=== PATIENT | female | born 1990 | race Hispanic/Latino ===

== ENCOUNTER 2023-07-17 01:57 | Emergency (ER) | payer OTHER, SELFPAY ==
--- NOTE | 2023-07-17 04:42 | ED.GENMED ---
History of Present Illness
<SABINO Aviles - Last Filed: 07/17/23 06:58>
General
Chief Complaint: Headache
Source: patient
Exam Limitations: none
Time Seen by Provider: 07/17/23 04:41
History of Present Illness
History of Present Illness:
33 year old F presents w/ c/o gradual worsening of headache x14 hours. Her headache began at 1pm yesterday and was located primarily at the back of her head. She had associated R eye blurriness that lasted for 1-2 hours that started at the same
time. She also has associated symptom of mild nausea. She took Tylenol 500mg at 1300 and again at 1400 without any relief. She also reports taking a hot shower that did not provide any relief. She admits to photophobia and states keeping her eyes
shut provides mild relief. She reports her headache is now located at the top of her head and describes the pain to be throbbing and 8/10 on a pain scale. She denies worst headache of her life, neck stiffness, chest pain, and shortness of breath,
vomiting, or diarrhea. She denies any head trauma or recent falls.
Past History
<SABINO Aviles - Last Filed: 07/17/23 06:58>
Past History
ED Past Medical History: Other (prolapsed uterus, HNP/chronic back pain)
ED Past Surgical History: None
Social History
Tobacco: Non-smoker
Alcohol: None
Drug: None
Personal:
Living: with family
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
Review of Systems
<SABINO Aviles - Last Filed: 07/17/23 06:58>
Review of Systems
Allergies reviewed?: Yes
All Other Systems: Not applicable
Constitutional: Reports no symptoms
EENT: Reports other (photophobia )
Respiratory: Reports no symptoms
Cardiac: Reports no symptoms
ABD/GI: Reports nausea
: Reports no symptoms
Musculoskeletal: Reports no symptoms
Skin: Reports no symptoms
Neurological: Reports headache
Endocrine: Reports no symptoms
Hematologic/Lymphatic: Reports no symptoms
Psychiatric: Reports no symptoms
Phy Exam
<Samantha Garcia [facility] - Last Filed: 07/17/23 06:58>
General Physical Exam
General Presentation: mild distress
General Skin: warm and dry
General Habitus: normal
General Mental: alert
General Hydration: appears well hydrated
ENT Exam
ENT Exam: EOMI, pharynx normal, neck supple and normocephalic
Eye Exam
Eye Exam: PERRL, cornea clear and conjunctiva normal
Cardiovascular Exam
Cardiovascular Exam: regular rate/rhythm, no edema, no murmur and normal peripheral pulses
Pulmonary Exam
Pulmonary Exam: lungs clear, no respiratory distress, no rales, no crackles, no rhonchi, no stridor, no wheezing and no cough
Gastrointestinal Exam
Gastrointestinal Exam: normal bowel sounds, non tender, soft, no organomegaly, no pulsatile mass and non distended
Neurological Exam
Neurological Exam: alert, oriented x3, no motor deficits and speech normal
Musculoskeletal Exam
Musculoskeletal Exam: full ROM and no edema
Skin Exam
Skin Exam: normal color, warm/dry, no rash and no petechia
Psychiatric Exam
Psychiatric Exam: normal mood/affect
Course
<Samantha Garcia [facility] - Last Filed: 07/17/23 06:58>
Orders/Labs/Results
Orders:
Orders
07/17/23 02:25
Basic Metabolic Panel Routine
Complete Blood Count/With Diff Routine
HCG, Serum Qualitative Screen Routine
Abnormal Lab Results
07/17/23
02:25
RBC 4.16 L 10^6/uL
(4.20-5.40)
Hgb 11.9 L g/dL
(12.0-16.0)
Hct 36.7 L %
(37.0-47.0)
MCHC 32.4 L g/dL
(33.0-37.0)
MPV 11.2 H fL
(7.4-10.4)
Absolute Neuts (auto) 7.2 H 10^3/uL
(1.4-6.5)
Absolute Monos (auto) 0.8 H 10^3/uL
(0.1-0.6)
Glucose 100 H mg/dl
(70-99)
07/17/23 02:25
07/17/23 02:25
Vital Signs
Initial and Last Documented VS:
Initial Vital Signs
Pulse Resp BP Pulse Ox
72 16 122/71 99
07/17/23 06:09 07/17/23 06:09 07/17/23 06:09 07/17/23 06:09
Last Documented Vital Signs
Pulse Resp BP Pulse Ox
72 16 122/71 99
07/17/23 06:09 07/17/23 06:09 07/17/23 06:09 07/17/23 06:09
<Asa Lainez, DO - Last Filed: 07/17/23 05:46>
Orders/Labs/Results
Orders:
Orders
07/17/23 02:25
Basic Metabolic Panel Routine
Complete Blood Count/With Diff Routine
HCG, Serum Qualitative Screen Routine
Abnormal Lab Results
07/17/23
02:25
RBC 4.16 L 10^6/uL
(4.20-5.40)
Hgb 11.9 L g/dL
(12.0-16.0)
Hct 36.7 L %
(37.0-47.0)
MCHC 32.4 L g/dL
(33.0-37.0)
MPV 11.2 H fL
(7.4-10.4)
Absolute Neuts (auto) 7.2 H 10^3/uL
(1.4-6.5)
Absolute Monos (auto) 0.8 H 10^3/uL
(0.1-0.6)
Glucose 100 H mg/dl
(70-99)
07/17/23 02:25
07/17/23 02:25
Vital Signs
Initial and Last Documented VS:
Initial Vital Signs
Pulse Resp BP Pulse Ox
72 16 122/71 99
07/17/23 06:09 07/17/23 06:09 07/17/23 06:09 07/17/23 06:09
Last Documented Vital Signs
Pulse Resp BP Pulse Ox
72 16 122/71 99
07/17/23 06:09 07/17/23 06:09 07/17/23 06:09 07/17/23 06:09
<SABINO Aviles - Last Filed: 07/17/23 06:58>
MDM/Problems Addressed
Differential Diagnosis Includes:
Migraine with aura was considered due to patient gradual worsening onset. She reports associated R eye blurriness with photophobia and nausea, consistent with migraine. Tension headache was considered d/t to headache with photophobia. However, she
describes her pain to be more centered and throbbing sensation, which is not consistent with tension headache.Stroke was considered d/t to vision changes. However, her symptom has now resolved. She denied any facial drooping, difficulty speaking, or
extremity paralysis. Subarachnoid hemorrhage was ruled out due to gradual worsening onset of headache. Patient also denied worse headache of her life. �
<Asa Lainez DO - Last Filed: 07/17/23 05:46>
*Critical Care Note
Total Time (30-74mins, 75-104mins- exclusive of procedures): Not Applicable
ED Attending Note
<SABINO Aviles - Last Filed: 07/17/23 06:58>
-
Portions of this chart may have been created with voice recognition software.� Occasional wrong word or��sound alike� substitutions may have occurred due to the inherent limitations of voice recognition software.
<Asa Lainez DO - Last Filed: 07/17/23 05:46>
ED Attending Note
Patient seen and examined by attending physician: Yes
I performed the substantive portion of visit, reviewed & personally made and approve the management plan that is documented in note by myself or NAHOMY.: Yes
ED Attending Note:
Pleasant 33-year-old female presents with headache she states that this headaches been present for the last 14 hours. She states it is in the back of her head and she did have some right eye blurriness. She does report some photophobia. She gets
some relief with keeping her eyes shut. Denies any neck pain or any other meningeal signs. Patient was seen in conjunction with the PA student. I have reviewed and agree with the history and treatment plan presented. On my independent physical
exam, patient is awake, alert, and oriented x3 pupils equal round reactive light accommodation. Heart is regular rate and rhythm. Lungs are clear to auscultation bilaterally without wheezes rales or rhonchi present.
07/17/2023 0543 AM Patient is feeling much better. Plan is to discharge to home.
Discharge Plan
Departure
Patient Disposition: Home (Routine Discharge)
Date of Disposition: 07/17/23
Time of Disposition: 05:43
Patient with high blood pressure during this ER visit?: No
Condition: Good
Discharge Problem:
Migraine headache with aura
Instructions: Migraines (DC), Headache, Adult (DC)
Prescriptions:
No Action
ibuprofen 600 MG tablet
600 mg PO Q6HPRN PRN (Reason: pain) Qty: 20 0RF
Cyclobenzaprine HCl
5 mg PO DAILY
ibuprofen 600 mg tablet
600 mg PO QID PRN (Reason: fever, pain) Qty: 30 0RF
Referrals:
Vanessa Ellsworth MD [Family Provider] -
Sharmin Adams, [Active] -
Activity Restrictions/Additional Instructions:
It was a pleasure meeting you and taking part in your care. We hope for your continued healing and wellness.
Please read discharge instructions in their entirety. However, they are for general education and may not describe your exact diagnosis at discharge. Information on your ER visit and medical conditions were discussed with you along with appropriate
follow up information...
If indicated, please take your medications as instructed and indicated on discharge paperwork.
Please schedule a follow up appointment as directed. Call to schedule an appointment
Please return to the emergency department with ANY change in, persisting, or worsening of symptoms. If any of your symptoms do not improve, or persist, or become more severe within 6-12 hours, please return to the emergency department for further
care.
Please return to the emergency department if you develop a headache, neck pain/stiffness, fever greater than 100.4F, chest pain, shortness of breath, persistent nausea, vomiting, slurred speech, difficulty walking, numbness/tingling, weakness, signs
of infection or any other symptoms that are worrisome to you.
If you have any questions or concerns please do not hesitate to call the Hospital at or E-mail me directly at [email or web address]
Interventions
Interventions:
ED- Fall Risk Assessment Last Done: 07/17/23 02:20
*Nursing Disposition Last Done: 07/17/23 06:10
ED- Neurological Assessment Last Done: 07/17/23 02:20
Discharge Date and Time
Discharge Date/Time: 07/17/23 06:50
Print Language: PERSIAN
--- NOTE | 2023-07-17 04:45 | DOWNTIME ---
There was a [email or web address] Downtime on 07/17/2023 from 0100 to 07/17/2023 at 0439. Downtime documentation of patient's care, including medication administrations, has been reconciled in the electronic record per guidelines. Refer to the
patient's paper chart under the miscellaneous tab to see printed paper medication records and downtime forms.
[2023-07-17 04:51] LABS: % Basophils 0.4 % (0-2); % Eosinophils 1.2 % (0-6); % Immature Granulocytes 0.2 % (0-0.5); % Lymphocytes 21.5 % (20.5-51.1); % Monocytes 7.7 % (1.7-9.3); Absolute Eosinophils 0.1 10^3/uL (0-0.7); Absolute Lymphocytes 2.2 10^3/uL (1.2-3.4); Absolute Monocytes 0.8 10^3/uL (0.1-0.6); Absolute Neutrophils 7.2 10^3/uL (1.4-6.5); Blood Urea Nitrogen 9 mg/dl (7-17); Calcium 9.3 mg/dl (8.4-10.2); Carbon Dioxide 24 mmol/L (22-30); Chloride 105 mmol/L (98-107); Glucose 100 mg/dl (70-99); Hematocrit 36.7 % (37.0-47.0); Hemoglobin 11.9 g/dL (12.0-16.0); Mean Corp Hgb Conc. 32.4 g/dL (33.0-37.0); Mean Corpuscular Hgb 28.6 pg (27.0-31.0); Mean Corpuscular Volume 88.2 fL (81.0-99.0); Mean Platelet Volume 11.2 fL (7.4-10.4); Nucleated Red Blood Cells % 0 %; Platelet Count 275 10^3/uL (130-400); Potassium 4.4 mmol/L (3.5-5.1); Red Blood Cell Count 4.16 10^6/uL (4.20-5.40); Sodium 136 mmol/L (135-145); White Blood Cell Count 10.4 10^3/uL (4.8-10.8); eGFR > 60.00
[2023-07-17 04:52] LABS: HCG, Serum Qualitative Screen Negative
[2023-07-17 06:09] VITALS: BP 122/71
== END 2023-07-17 06:50 | disposition home or self-care (01) ==
LOC: EMR 01:57
PROVIDERS: EMERGENCY PHYSICIAN Student in an Organized Health Care Education/Training Program; FAMILY PHYSICIAN Family Medicine
DX: G43.109 Migraine with aura, not intractable, without status migrainosus (principal)
CPT/HCPCS: 99283; 80048; 84703; 85025

== ENCOUNTER 2023-09-10 10:45 | Emergency (ER) | payer OTHER, SELFPAY ==
[2023-09-10 10:49] VITALS: BP 133/77; BMI 33.8
[2023-09-10 10:56] VITALS: BP 133/77
[2023-09-10 11:00] VITALS: BP 137/77
[2023-09-10 11:15] LABS: % Basophils 0.3 % (0-2); % Eosinophils 0.4 % (0-6); % Immature Granulocytes 0.4 % (0-0.5); % Lymphocytes 16.5 % (20.5-51.1); % Monocytes 6.1 % (1.7-9.3); % Neutrophils 76.3 % (42.2-75.2); Absolute Immature Granulocytes 0.1 10^3/uL (0-0.05); Absolute Lymphocytes 1.9 10^3/uL (1.2-3.4); Absolute Monocytes 0.7 10^3/uL (0.1-0.6); Absolute Neutrophils 8.7 10^3/uL (1.4-6.5); Hematocrit 35.5 % (37.0-47.0); Mean Corp Hgb Conc. 33.8 g/dL (33.0-37.0); Mean Corpuscular Hgb 28.5 pg (27.0-31.0); Mean Corpuscular Volume 84.3 fL (81.0-99.0); Nucleated Red Blood Cells % 0 %; Platelet Count 243 10^3/uL (130-400); Red Blood Cell Count 4.21 10^6/uL (4.20-5.40); Red Cell Dist. Width 13.4 % (11.5-14.5); White Blood Cell Count 11.4 10^3/uL (4.8-10.8)
--- NOTE | 2023-09-10 11:21 | ED.GENMED ---
History of Present Illness
General
Chief Complaint: Abdominal Pain
Source: patient
Time Seen by Provider: 09/10/23 11:12
Travel History
Have you had any contact with someone who has COVID-19?: No
Do you have any symptoms of coronavirus? Fever > 100 degrees, chills, cough, shortness of breath, sore throat, loss of taste or smell, muscle aches, or headache?: No
History of Present Illness
History of Present Illness:
33-year-old female with no significant past medical history presenting to the emergency department for evaluation of left lower quadrant abdominal pain that began yesterday, acutely worse this morning around 3 AM and unrelieved with Tylenol as well
as herbal tea. Patient states due to the persistent nature of the pain she decided to come to the ER today. She denies any other associated symptoms other than she started with her menstrual period about 2 weeks early. She notes she is sexually
active but has minimal concern for she denies any fevers, chills, rigors, nausea, bowel changes, urinary symptoms, back or flank pain. She states she has had this pain in the past however today is much more tense than usual.
Past History
Past History
ED Past Medical History: Psychiatric and Other (prolapsed uterus, HNP/chronic back pain)
ED Past Surgical History: None
Social History
Tobacco: Non-smoker
Alcohol: Occasional
Drug: None
Personal:
Living: with family
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
Review of Systems
Review of Systems
All Other Systems: ROS reviewed and negative except as documented in HPI and ROS
Phy Exam
Physical Exam
Physical Exam:
GENERAL: Alert , Appears very uncomfortable, moaning
EYE: clear conjunctiva b/l
HEAD: NCAT
ENT: o/p clr, mmm.
CARDIAC: Regular rate and rhythm .
LUNGS: Clear breath sounds bilaterally, no acute respiratory distress, no wheezes/rales/rhonchi
ABDOMEN: Soft, left mid to lower abdominal tenderness/pain, no r/g, no cvat
NEUROLOGICAL: Alert and oriented
SKIN: Warm and dry, skin intact.
MUSCULOSKELETAL: well perfused.
PSYCH: Normal and appropriate interaction.
Scores
Heart Failure Risk
Heart Failure Risk Score: Not Applicable
Heart Score for Chest Pain Patients
STEMI patient?: Not applicable
Withdrawal Assessment of Alcohol
Withdrawal Assessment Completed?: Not applicable
Course
Orders/Labs/Results
Orders:
Orders
09/10/23 10:59
Test Result ONCE
09/10/23 11:00
Complete Blood Count/With Diff Urgent
Comprehensive Metabolic Panel Urgent
HCG, Serum Qualitative Screen Urgent
Lipase Urgent
09/10/23 11:20
0.9% Sodium Chloride 1000 ml [Nss] 1,000 ml IV BOLUS
Ketorolac [Toradol] 30 mg IV NOW STA
US Pelvis W Transvag Combined Urgent
Comment:
Reason For Exam: left lower abd pain, early menstrual
09/10/23 12:19
HYDROmorphone [Dilaudid] 0.5 mg .ROUTE .STK-MED ONE
09/10/23 12:20
HYDROmorphone [Dilaudid] 0.5 mg IV NOW STA
09/10/23 12:30
Urinalysis Reflex To Culture Urgent
Date Specimen was Collected: 09/10/23
Time Specimen was Collected: 12:28
Urine Microscopic Reflex Cult Urgent
09/10/23 13:10
CT Abd/pelvis W Iv Cont Urgent
Comment:
Reason For Exam: left sided lower abd pain
09/10/23 13:34
HYDROmorphone [Dilaudid] 0.5 mg IV NOW STA
Abnormal Lab Results
09/10/23 09/10/23
11:00 12:30
WBC 11.4 H 10^3/uL
(4.8-10.8)
Hct 35.5 L %
(37.0-47.0)
MPV 11.0 H fL
(7.4-10.4)
Abs Immat Gran (auto) 0.1 H 10^3/uL
(0-0.05)
Absolute Neuts (auto) 8.7 H 10^3/uL
(1.4-6.5)
Absolute Monos (auto) 0.7 H 10^3/uL
(0.1-0.6)
Neutrophils % 76.3 H %
(42.2-75.2)
Lymphocytes % 16.5 L %
(20.5-51.1)
Creatinine 0.5 L mg/dL
(0.6-1.0)
Ur Occult Blood Reflex 4+ A
(Negative)
Leukocyte Esterase Rfl Trace A
(Negative)
Urine RBC 30-40 A /HPF
(0-2)
Urine Bacteria (Reflex) Few A
(Negative)
09/10/23 11:00
09/10/23 11:00
Vital Signs
Initial and Last Documented VS:
Initial Vital Signs
Temp Pulse Resp BP Pulse Ox
98.4 F 80 17 133/77 97
09/10/23 10:49 09/10/23 10:49 09/10/23 10:49 09/10/23 10:49 09/10/23 10:49
Last Documented Vital Signs
Temp Pulse Resp BP Pulse Ox
98.4 F 65 17 140/76 97
09/10/23 10:49 09/10/23 13:45 09/10/23 10:49 09/10/23 13:42 09/10/23 13:45
MDM/Problems Addressed
Differential Diagnosis Includes:
/ectopic , ovarian cyst, ovarian torsion, diverticulitis, colitis, endometriosis
MDM/Problems Addressed:
33-year-old female presenting to the emergency department for evaluation of left lower quadrant abdominal pain x 1 day, acutely worse today prompting visit to the ER. She did take Tylenol last night but had minimal to no relief. Denies any fevers
or infectious symptoms. Currently appears quite uncomfortable. Will order Toradol for pain. Labs initiated from triage. I added on a ultrasound. Reassessment following.
*Radiology
Radiology exam reviewed: radiology read reviewed
*Pulse Oximetry
Patient hypoxic: no
*Critical Care Note
Total Time (30-74mins, 75-104mins- exclusive of procedures): Not Applicable
Data Reviewed
Review of Other/Old Records Reveals: Labs and Records
Comment
Comment:
12 PM: Patient still with considerable pain despite Toradol. Half milligram Dilaudid ordered. Due to the persistent nature of pain we contacted the ultrasound department to try and get patient to her study NELY as torsion is high on differential
1:20 PM: Patient's left ovary is slightly hypervascular. 4-1/2 cm fibroid noted. Went to reassess patient and discussed the ultrasound results and she still noting pain despite Dilaudid. Additional half milligram of Dilaudid ordered. CT of the
abdomen pelvis ordered. Reassessment following.
Patient Management
Escalation/DeEscalation of care consider admission/obs:
Patient CT and ultrasound without any acute findings. There is a 4-1/2 cm uterine fibroid which could certainly be a cause of breakthrough bleeding and dysmenorrhea. Patient noting improved albeit still mildly continued pain. Given lack of
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 Patient expressed understanding of return precautions. Stable for
discharge
ED Attending Note
-
Portions of this chart may have been created with voice recognition software.� Occasional wrong word or��sound alike� substitutions may have occurred due to the inherent limitations of voice recognition software.
Discharge Plan
Departure
Patient Disposition: Home (Routine Discharge)
Date of Disposition: 09/10/23
Time of Disposition: 15:10
Patient with high blood pressure during this ER visit?: Yes
Discharge Problem:
Abdominal pain, Fibroid, uterine, Dysmenorrhea
Instructions: Abdominal Pain
Prescriptions:
New
oxycodone-acetaminophen [Percocet] 5-325 mg tablet
1 tab PO Q6HPRN PRN (Reason: pain) Qty: 5 0RF
No Action
ibuprofen 600 MG tablet
600 mg PO Q6HPRN PRN (Reason: pain) Qty: 20 0RF
Cyclobenzaprine HCl
5 mg PO DAILY
ibuprofen 600 mg tablet
600 mg PO QID PRN (Reason: fever, pain) Qty: 30 0RF
Referrals:
Vanessa Ellsworth MD [Family Provider] -
Interventions
Interventions:
*Risk Screen - Suicide Last Done: 09/10/23 10:49
*General Assessment Last Done: 09/10/23 10:49
*Neglect/Abuse Screening Last Done: 09/10/23 10:49
ED- Fall Risk Assessment Last Done: 09/10/23 11:15
*ED COVID-19 Vaccine History Last Done: 09/10/23 10:49
AV-Szpjic-Xnqfbakybb Assessment Last Done: 09/10/23 11:15
Discharge Date and Time
Print Language: EGYPTIAN
[2023-09-10] MEDS: TORADOL 30 MG IV (11:26)
[2023-09-10] MEDS: NSS 1000 IV (11:26)
[2023-09-10 11:29] LABS: HCG, Serum Qualitative Screen Negative
[2023-09-10 11:34] LABS: ALT (SGPT) 12 U/L (0-35); AST (SGOT) 20 U/L (14-36); Alkaline Phosphatase 85 U/L (38-126); Blood Urea Nitrogen 7 mg/dl (7-17); Carbon Dioxide 24 mmol/L (22-30); Chloride 106 mmol/L (98-107); Estimated Creatinine Clearance > 125 ml/min; Glucose 98 mg/dl (70-99); Lipase 38 U/L (23-300); Sodium 137 mmol/L (135-145); Total Bilirubin 1.1 mg/dl (0.2-1.3); Total Protein 6.9 g/dl (6.3-8.2); eGFR > 60.00
[2023-09-10 12:00] VITALS: BP 138/75
[2023-09-10] MEDS: DILAUDID 0.5 MG IV ×2 (12:21→13:40)
[2023-09-10 12:41] LABS: Urine Albumin Negative (Neg - Trace); Urine Bilirubin Negative (Negative); Urine Character Clear (Clear); Urine Color Straw; Urine Glucose Negative (Negative); Urine Ketone Negative (Negative); Urine Leukocyte Trace (Negative); Urine Nitrite Negative (Negative); Urine Occult Blood 4+ (Negative); Urine Specific Gravity 1.005 (<1.030); Urine Urobilinogen Negative (Neg - 1+)
[2023-09-10 13:10] LABS: Urine Bacteria Few (Negative); Urine Squamous Cell 21-25 /LPF (Few)
[2023-09-10 13:11] LABS: Urine Red Blood Cell 30-40 /HPF (0-2); Urine White Cell 0-2 /HPF (0-5)
[2023-09-10 13:42] VITALS: BP 140/76
== END 2023-09-10 15:30 | disposition home or self-care (01) ==
LOC: EMR 10:45
PROVIDERS: Physician Assistant Medical; EMERGENCY PHYSICIAN Emergency Medicine; FAMILY PHYSICIAN Family Medicine
DX: R10.32 Left lower quadrant pain (principal); D25.9 Leiomyoma of uterus, unspecified; N94.6 Dysmenorrhea, unspecified; R03.0 Elevated blood-pressure reading, without diagnosis of hypertension
CPT/HCPCS: 99285; 96374; 96375; 96361; 96376; 74177; 76830; 76856; 80053; 81003; 81015; 83690; 84703; 85025; Q9967

== ENCOUNTER 2023-09-10 15:44 | Emergency (ER) | payer OTHER, SELFPAY ==
--- NOTE | 2023-09-10 15:48 | ED.GENMED ---
History of Present Illness
General
Chief Complaint: Fainting/Passed Out
Source: patient
Time Seen by Provider: 09/10/23 15:48
History of Present Illness
History of Present Illness:
33-year-old female seen in this emergency department earlier today by myself for evaluation of left lower abdominal pain combined with breakthrough vaginal bleeding presenting back into the emergency department after she was waiting outside for her
ride when she had a witnessed vagal episode. Patient stated prior to syncopized and she started to feel lightheaded and dizzy and then proceeded to syncopized. Patient arrived back into the emergency department tearful, somewhat pale in appearance
but in no acute distress. As mentioned at her discharge patient still does have some mild lower abdominal pain but much improved since initial evaluation. No other concerns and patient is denying any chest pain, shortness of breath, palpitations,
diaphoresis or any other symptoms.
Past History
Past History
ED Past Medical History: Psychiatric and Other (prolapsed uterus, HNP/chronic back pain)
ED Past Surgical History: None
Social History
Tobacco: Non-smoker
Alcohol: Occasional
Drug: None
Personal:
Living: with family
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
Review of Systems
Review of Systems
All Other Systems: ROS reviewed and negative except as documented in HPI and ROS
Phy Exam
Physical Exam
Physical Exam:
GENERAL: Alert , tearful, pale
HEAD: NCAT
EYE: conjunctiva clear
NECK: Supple
ENT: o/p clr, mmm.
CARDIAC: Regular rate and rhythm
LUNGS: Clear breath sounds bilaterally, no acute respiratory distress, no wheezes/rales/rhonchi
Abdomen: Mild tenderness left lower abdomen
NEUROLOGICAL: Alert and oriented
SKIN: Warm and dry, superficial abrasion right lateral lower leg with no active bleeding
MUSCULOSKELETAL: well perfused.
PSYCH: Normal and appropriate interaction.
Scores
Heart Failure Risk
Heart Failure Risk Score: Not Applicable
Heart Score for Chest Pain Patients
STEMI patient?: Not applicable
Withdrawal Assessment of Alcohol
Withdrawal Assessment Completed?: Not applicable
Course
Orders/Labs/Results
Orders:
Orders
09/10/23 15:48
0.9% Sodium Chloride 1000 ml [Nss] 1,000 ml IV BOLUS
Vital Signs
Initial and Last Documented VS:
Initial Vital Signs
Temp Pulse Resp BP Pulse Ox
98.4 F 57 16 104/69 100
09/10/23 15:53 09/10/23 15:53 09/10/23 15:53 09/10/23 15:53 09/10/23 15:53
Last Documented Vital Signs
Temp Pulse Resp BP Pulse Ox
98.4 F 61 16 133/82 100
09/10/23 15:53 09/10/23 17:05 09/10/23 15:53 09/10/23 17:05 09/10/23 15:53
MDM/Problems Addressed
Differential Diagnosis Includes:
Vagal episode, medication response, dehydration
MDM/Problems Addressed:
33-year-old female presenting back into the emergency department after being discharged just earlier this afternoon after she had a witnessed syncopal episode while awaiting her ride. Patient had CT of the abdomen and pelvis as well as ultrasound
which did not show any abnormalities outside of a 4-1/2 cm fibroid within the uterus. I do not suspect any emergent pathologies but will treat with fluids and monitor patient back in the emergency department. Reassessment following.
*Pulse Oximetry
Patient hypoxic: no
*Critical Care Note
Total Time (30-74mins, 75-104mins- exclusive of procedures): Not Applicable
Data Reviewed
Review of Other/Old Records Reveals: Labs
Patient Management
Escalation/DeEscalation of care consider admission/obs:
Patient feeling significantly better and feels ready to go home. Aware of return precautions to ED
ED Attending Note
-
Portions of this chart may have been created with voice recognition software.� Occasional wrong word or��sound alike� substitutions may have occurred due to the inherent limitations of voice recognition software.
Discharge Plan
Departure
Patient Disposition: Home (Routine Discharge)
Date of Disposition: 09/10/23
Time of Disposition: 16:35
Patient with high blood pressure during this ER visit?: No
Discharge Problem:
Vasovagal syncope
Instructions: Syncope (Fainting) (DC)
Prescriptions:
No Action
ibuprofen 600 MG tablet
600 mg PO Q6HPRN PRN (Reason: pain) Qty: 20 0RF
Cyclobenzaprine HCl
5 mg PO DAILY
ibuprofen 600 mg tablet
600 mg PO QID PRN (Reason: fever, pain) Qty: 30 0RF
oxycodone-acetaminophen [Percocet] 5-325 mg tablet
1 tab PO Q6HPRN PRN (Reason: pain) Qty: 5 0RF
Interventions
Interventions:
*Risk Screen - Suicide Last Done: 09/10/23 15:53
*General Assessment Last Done: 09/10/23 15:53
*Neglect/Abuse Screening Last Done: 09/10/23 15:53
ED- Fall Risk Assessment Last Done: 09/10/23 15:53
*ED COVID-19 Vaccine History Last Done: 09/10/23 15:53
*Nursing Disposition Last Done: 09/10/23 17:05
ED- Cardiac Assessment Last Done: 09/10/23 15:53
ED- Neurological Assessment Last Done: 09/10/23 15:53
Discharge Date and Time
Discharge Date/Time: 09/10/23 17:05
Print Language: TRINIDADIAN
[2023-09-10] MEDS: NSS 1000 IV (15:52)
[2023-09-10 15:53] VITALS: BP 104/69; BMI 33.8
[2023-09-10 17:05] VITALS: BP 133/82
== END 2023-09-10 17:05 | disposition home or self-care (01) ==
LOC: EMR 15:44
PROVIDERS: EMERGENCY PHYSICIAN Emergency Medicine; FAMILY PHYSICIAN Family Medicine
DX: R55 Syncope and collapse (principal)
CPT/HCPCS: 96360; 99284

== ENCOUNTER 2023-12-15 12:24 | Emergency (ER) | payer OTHER, SELFPAY ==
[2023-12-15 12:26] VITALS: BP 147/78
[2023-12-15] MEDS: ZOFRAN 4 MG IV (14:17)
[2023-12-15] MEDS: TORADOL 15 MG IV (14:17)
[2023-12-15] MEDS: DILAUDID 0.5 MG IV (14:17)
--- NOTE | 2023-12-15 14:17 | ED.GENMED ---
History of Present Illness
General
Chief Complaint: Abdominal Pain
Source: patient
Exam Limitations: none
Time Seen by Provider: 12/15/23 13:17
Nursing documentation reviewed up to this point in time: agreed with
History of Present Illness
History of Present Illness:
Patient is a 33-year-old female presents to the emergency department after developing sudden onset of left lower quadrant abdominal pain while driving. Patient is in the middle of her period. Patient was recently started on control because
of dysmenorrhea. Patient denies any history of ovarian cyst. Patient denies fever or chills. Patient denies any nausea, vomiting or diarrhea. Patient denies any urinary tract symptoms. Patient states the pain is similar to the pain she had with
her periods. Patient denies any recent illnesses or injuries.
Past History
Past History
ED Past Medical History: Psychiatric and Other (prolapsed uterus, HNP/chronic back pain)
ED Past Surgical History: None
Social History
Tobacco: Non-smoker
Alcohol: Occasional
Drug: None
Personal:
Living: with family
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
Review of Systems
Review of Systems
All Other Systems: ROS reviewed and negative except as documented in HPI and ROS
Constitutional: Reports no symptoms
EENT: Reports no symptoms
Respiratory: Reports no symptoms
Cardiac: Reports no symptoms
ABD/GI: Reports abdominal pain; Denies nausea, vomiting, diarrhea or constipated
: Reports no symptoms
Musculoskeletal: Reports no symptoms
Skin: Reports no symptoms
Hematologic/Lymphatic: Reports no symptoms
Phy Exam
Physical Exam
Physical Exam:
Physical Exam
General: moderate distress, alert and appropriate, well nourished, well hydrated
HENT: Normocephalic, supple
Eyes: Clear sclera, conjuctiva without injection
Heart: Regular rhythm and rate. No S3, S4. No murmur.
Lungs: No respiratory distress, no stridor, lung sounds clear and equal bilaterally
Abdomen: Soft, mild left lower quadrant tenderness without guarding or rebound, no organomegaly, no CVA tenderness, BS good
Neuro: Alert and oriented x 3, CN II - XII intact, no motor focality, no cerebellar dysfunction
Skin: no rash
Psychiatric: well kept. interactive and cooperative
Extremities: No edema, cyanosis, tenderness, Good and equal peripheral pulses.
Scores
Heart Failure Risk
Heart Failure Risk Score: Not Applicable
Heart Score for Chest Pain Patients
STEMI patient?: Not applicable
Withdrawal Assessment of Alcohol
Withdrawal Assessment Completed?: Not applicable
Course
Orders/Labs/Results
Orders:
Orders
12/15/23 13:50
0.9% Sodium Chloride 1000 ml [Nss] 1,000 ml IV BOLUS
HYDROmorphone [Dilaudid] 0.5 mg IV NOW STA
Ketorolac [Toradol] 15 mg IV NOW STA
Ondansetron Injectable [Zofran] 4 mg IV NOW STA
Test Result ONCE
US Pelvis Only (non-obstetric) Urgent
Comment:
Reason For Exam: Left lower quadrant pain/tenderness
12/15/23 14:14
Complete Blood Count/With Diff Urgent
Comprehensive Metabolic Panel Urgent
HCG, Serum Qualitative Screen Urgent
12/15/23 16:13
Fentanyl Citrate/Pf [Sublimaze] 50 mcg IV NOW STA
12/15/23 16:24
Urinalysis Reflex To Culture Urgent
Specimen Description:
Date Specimen was Collected: 12/15/23
Time Specimen was Collected: 16:10
Abnormal Lab Results
12/15/23
14:14
RBC 4.00 L 10^6/uL
(4.20-5.40)
Hgb 11.3 L g/dL
(12.0-16.0)
Hct 34.6 L %
(37.0-47.0)
MCHC 32.7 L g/dL
(33.0-37.0)
MPV 10.9 H fL
(7.4-10.4)
Absolute Neuts (auto) 6.7 H 10^3/uL
(1.4-6.5)
Lymphocytes % 19.7 L %
(20.5-51.1)
Chloride 108 H mmol/L
(98-107)
12/15/23 14:14
12/15/23 14:14
Vital Signs
Initial and Last Documented VS:
Initial Vital Signs
Temp Pulse Resp BP Pulse Ox
98.7 F 61 16 147/78 98
12/15/23 12:26 12/15/23 12:26 12/15/23 12:26 12/15/23 12:26 12/15/23 12:26
Last Documented Vital Signs
Temp Pulse Resp BP Pulse Ox
98.7 F 61 16 113/68 100
12/15/23 12:26 12/15/23 12:26 12/15/23 14:21 12/15/23 17:00 12/15/23 17:30
*Radiology
Radiology exam reviewed: radiology read reviewed
*Pulse Oximetry
Patient hypoxic: no
*EKG
Interpreted by ED Provider?: NA
*Farm General Manager Interpretation
Rate: Farm General Manager- N/A
*Critical Care Note
Total Time (30-74mins, 75-104mins- exclusive of procedures): Not Applicable
Update Note
Update Note:
Patient feeling somewhat better but still with pain. Patient will follow-up with her side seam machine operator. 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
ED Attending Note
-
Portions of this chart may have been created with voice recognition software.� Occasional wrong word or��sound alike� substitutions may have occurred due to the inherent limitations of voice recognition software.
Discharge Plan
Departure
Patient Disposition: Home (Routine Discharge)
Date of Disposition: 12/15/23
Time of Disposition: 18:00
Patient with high blood pressure during this ER visit?: No
Condition: Fair
Covid-19: Not Applicable
Discharge Problem:
Abdominal pain, left lower quadrant
Instructions: Ovarian Cyst (DC), Abdominal Pain
Prescriptions:
New
ketorolac 10 mg tablet
10 mg PO QID PRN (Reason: pain) 5 Days Qty: 20 0RF
oxycodone 5 mg tablet
5 mg PO Q4H PRN (Reason: Pain) Qty: 12 0RF
No Action
ibuprofen 600 MG tablet
600 mg PO Q6HPRN PRN (Reason: pain) Qty: 20 0RF
Cyclobenzaprine HCl
5 mg PO DAILY
ibuprofen 600 mg tablet
600 mg PO QID PRN (Reason: fever, pain) Qty: 30 0RF
oxycodone-acetaminophen [Percocet] 5-325 mg tablet
1 tab PO Q6HPRN PRN (Reason: pain) Qty: 5 0RF
Referrals:
UNKNOWN - PT DOES,NOT KNOW [Family Provider] -
Activity Restrictions/Additional Instructions:
Follow-up with your side seam machine operator in the next 1 to 2 days. Any increasing pain, fever or chills please return
Interventions
Interventions:
*Risk Screen - Suicide Last Done: 12/15/23 12:26
*General Assessment Last Done: 12/15/23 12:26
*Neglect/Abuse Screening Last Done: 12/15/23 12:26
OL-Qvfusm-Lgfxmuhrew Assessment Last Done: 12/15/23 14:21
Discharge Date and Time
Print Language: YI
[2023-12-15] MEDS: NSS 1000 IV (14:18)
[2023-12-15 14:21] LABS: % Basophils 0.5 % (0-2); % Eosinophils 1.1 % (0-6); % Immature Granulocytes 0.3 % (0-0.5); % Lymphocytes 19.7 % (20.5-51.1); % Monocytes 6.4 % (1.7-9.3); Absolute Basophils 0.1 10^3/uL (0-0.2); Absolute Eosinophils 0.1 10^3/uL (0-0.7); Absolute Lymphocytes 1.8 10^3/uL (1.2-3.4); Absolute Monocytes 0.6 10^3/uL (0.1-0.6); Absolute Neutrophils 6.7 10^3/uL (1.4-6.5); Hematocrit 34.6 % (37.0-47.0); Hemoglobin 11.3 g/dL (12.0-16.0); Mean Corp Hgb Conc. 32.7 g/dL (33.0-37.0); Mean Corpuscular Hgb 28.3 pg (27.0-31.0); Mean Corpuscular Volume 86.5 fL (81.0-99.0); Mean Platelet Volume 10.9 fL (7.4-10.4); Nucleated Red Blood Cells % 0 %; Platelet Count 309 10^3/uL (130-400); Red Cell Dist. Width 13.7 % (11.5-14.5); White Blood Cell Count 9.3 10^3/uL (4.8-10.8)
[2023-12-15 14:29] LABS: HCG, Serum Qualitative Screen Negative
[2023-12-15 14:32] LABS: ALT (SGPT) 13 U/L (0-35); AST (SGOT) 21 U/L (14-36); Albumin 4.2 g/dl (3.5-5.0); Alkaline Phosphatase 64 U/L (38-126); Blood Urea Nitrogen 9 mg/dl (7-17); Calcium 9.3 mg/dl (8.4-10.2); Carbon Dioxide 23 mmol/L (22-30); Chloride 108 mmol/L (98-107); Glucose 94 mg/dl (70-99); Potassium 4.3 mmol/L (3.5-5.1); Sodium 142 mmol/L (135-145); Total Bilirubin 0.6 mg/dl (0.2-1.3); Total Protein 7.1 g/dl (6.3-8.2); eGFR > 60.00
[2023-12-15] MEDS: SUBLIMAZE 50 MCG IV (16:20)
[2023-12-15 16:22] VITALS: BP 110/69
[2023-12-15 17:00] VITALS: BP 113/68
[2023-12-15 18:00] VITALS: BP 97/56
[2023-12-15 18:24] LABS: Urine Albumin Negative (Neg - Trace); Urine Bilirubin Negative (Negative); Urine Character Clear (Clear); Urine Color Yellow; Urine Glucose Negative (Negative); Urine Ketone Negative (Negative); Urine Leukocyte Negative (Negative); Urine Nitrite Negative (Negative); Urine Occult Blood Trace (Negative); Urine Specific Gravity 1.015 (<1.030); Urine Urobilinogen Negative (Neg - 1+)
[2023-12-15 18:34] LABS: Urine Red Blood Cell 0-2 /HPF (0-2); Urine White Cell 0-2 /HPF (0-5)
== END 2023-12-15 18:28 | disposition home or self-care (01) ==
LOC: EMR 12:24
PROVIDERS: EMERGENCY PHYSICIAN Emergency Medicine
DX: R10.32 Left lower quadrant pain (principal); N94.6 Dysmenorrhea, unspecified
CPT/HCPCS: 99284; 96374; 96375; 76856; 80053; 81003; 81015; 84703; 85025

== ENCOUNTER 2024-10-05 20:56 | Emergency (ER) | payer OTHER, SELFPAY ==
[2024-10-05 21:03] VITALS: BP 144/81
[2024-10-05 23:16] VITALS: BMI 36.1
[2024-10-05 23:20] VITALS: BP 121/81
[2024-10-05] MEDS: NORCO 5/325 1 TABLET PO (23:46)
[2024-10-05] MEDS: DELTASONE 40 MG PO (23:46)
--- NOTE | 2024-10-06 00:24 | ED.MUSCINJ ---
HPI-Injury
General
Chief Complaint: Fall
Source: patient
Exam Limitations: none
Time Seen by Provider: 10/05/24 23:19
Nursing documentation reviewed up to this point in time: agreed with
History of Present Illness-Injury
Is this injury a work related problem?: No
Is pt an associate of [facility]?: No
Initial Injury comments:
Patient states she 'rolled' down steps 1 week ago. Initially felt ok, states she rested during the week. Today she reports increasing neck pain, headache, photophobia. Denies any fever/chills. No recent illenss. +nausea, no vomitingBrought to ED
by family for eval
Past History
Past History
ED Past Medical History: Psychiatric and Other (prolapsed uterus, HNP/chronic back pain)
ED Past Surgical History: None
Social History
Tobacco: Non-smoker
Alcohol: Occasional
Drug: None
Personal:
Living: with family
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
Review of Systems
Review of Systems
Allergies reviewed?: Yes
All Other Systems: ROS reviewed and negative except as documented in HPI and ROS
Constitutional: Reports no symptoms
EENT: Reports other (photophobia)
Respiratory: Reports no symptoms
Cardiac: Reports no symptoms
ABD/GI: Reports nausea
: Reports no symptoms
Musculoskeletal: Reports neck pain
Skin: Reports no symptoms
Neurological: Reports headache
Psychiatric: Reports no symptoms
Musculoskeletal Injury Exam
Musculoskeletal Injury Exam
Posterior Neck:
Pain with Movement?: Moderate
Tender to palpation?: Moderate
Soft tissue swelling?: None
External deformity and angulation?: None
Joint effusion?: None
Contusion?: None
Hematoma-local bleeding into tissue?: None
Strain- Sprain- Tear (Connective tissue injury)?: Moderate
Crepitus with movement?: No
Joint instability?: No
Malalignment/deformity?: No
Range of motion: Limited
Distal skin color and temperature: normal-warm & good color
Capillary Refill: normal
Normal distal neurovascular exam?: Yes
Phy Exam
General Physical Exam
General Presentation: mild distress
General age: appears stated age
General Skin: warm and dry
General Habitus: normal
General Mental: alert
Neurological Exam
Neurological Exam: alert, oriented x3, no motor deficits, no sensory deficits, speech normal and normal gait
Musculoskeletal Exam
Musculoskeletal Exam: full ROM
Skin Exam
Skin Exam: normal color and warm/dry
Psychiatric Exam
Psychiatric Exam: normal mood/affect
Injury Course
Orders/Labs/Results
Orders:
Orders
10/05/24 21:05
CT Head W/o Iv Contrast Urgent
Comment:
Reason For Exam: fall
10/05/24 21:09
CT Cervical Spine W/o Iv Contr Urgent
Comment:
Reason For Exam: fall
CR Lumbar Spine Comp Min 4 Vw* Urgent
Comment:
Reason For Exam: injury
10/05/24 23:27
Cervical Collar- Treatment ONCE
Collar Type: Soft Cervical Collar
Hydrocodone 5/APAP 325 [[place] 5/325] 1 tablet PO NOW STA
Prednisone [Deltasone] 40 mg PO NOW STA
*Radiology
Radiology exam reviewed: radiology read reviewed
*Pulse Oximetry
SaO2: 99
Oxygen Mode of Delivery: Room air
Patient hypoxic: no
*Critical Care Note
Total Time (30-74mins, 75-104mins- exclusive of procedures): Not Applicable
ED Attending Note
-
Portions of this chart may have been created with voice recognition software.� Occasional wrong word or��sound alike� substitutions may have occurred due to the inherent limitations of voice recognition software.
Discharge Plan
Departure
Patient Disposition: Home (Routine Discharge)
Date of Disposition: 10/05/24
Time of Disposition: 23:31
Patient with high blood pressure during this ER visit?: No
Condition: Good
Covid-19: Not Applicable
Discharge Problem:
Head injury, Neck pain, Back pain
Instructions: Herniated Disc (DC), Head Injury in Adults (DC), Back Pain, Ibuprofen
Prescriptions:
New
prednisone 10 mg Tablet
See Rx Instructions .ROUTE .COMPLEX Qty: 30 0RF
Rx Instructions:
Take By Mouth:
40 mg daily x3 days, 30 mg daily x3 days,
20 mg daily x3 days, 10 mg daily x3 days.
hydrocodone-acetaminophen 5-325 mg tablet
1 tab PO Q4H PRN (Reason: Pain) Qty: 14 0RF
Referrals:
Bryan Mujica MD [[facility], Orthopedics] - Next open appointment
Interventions
Interventions:
*Risk Screen - Suicide Last Done: 10/05/24 23:18
*General Assessment Last Done: 10/05/24 21:03
*Neglect/Abuse Screening Last Done: 10/05/24 23:18
*ED- Fall Risk Assessment Last Done: 10/05/24 23:18
*ED COVID-19 Vaccine History Last Done: 10/05/24 23:18
*Nursing Disposition Last Done: 10/06/24 00:07
ED-Musculoskeletal Assessment Last Done: 10/05/24 23:22
ED- Neurological Assessment Last Done: 10/05/24 23:22
ED-Skin Assessment Last Done: 10/05/24 23:22
Discharge Date and Time
Discharge Date/Time: 10/06/24 00:08
Print Language: RWANDAN
== END 2024-10-06 00:08 | disposition home or self-care (01) ==
LOC: EMR 20:56
PROVIDERS: EMERGENCY PHYSICIAN Student in an Organized Health Care Education/Training Program; FAMILY PHYSICIAN Family Medicine
DX: S09.90XA Unspecified injury of head, initial encounter (principal); M54.2 Cervicalgia; M54.9 Dorsalgia, unspecified; W10.9XXA Fall (on) (from) unspecified stairs and steps, initial encounter; G89.29 Other chronic pain
CPT/HCPCS: 99284; 70450; 72110; 72125

== ENCOUNTER 2024-10-22 12:48 | Emergency (ER) | payer OTHER, SELFPAY ==
[2024-10-22 12:57] VITALS: BP 137/78
--- NOTE | 2024-10-22 14:10 | ED.GENMED ---
History of Present Illness
General
Chief Complaint: Headache
Time Seen by Provider: 10/22/24 14:09
History of Present Illness
History of Present Illness:
34-year-old female presents to the ER for further evaluation of neck and back pain after she fell down the steps 2 weeks ago. Patient had evaluation in this emergency department which I was able to review with the patient including CT head,
cervical spine and x-ray of the lower back. Patient completed prednisone taper and has been using hydrocodone. She no longer has any of these medications left and has had persistent discomfort in the back of her neck and head. She denies
vomiting. She reports intermittent feeling of numbness to her posterior scalp. She denies using any jetc-qqo-[id number] remedies for her symptoms. She does report some dysuria but no vaginal discharge. She is not taking any other prescription
medications. She states that she has been trying to get in touch with her primary care physician without success-she did try to schedule an appointment with neurology as referred however they would not see her until she has had outpatient MRI.
Past History
Past History
ED Past Medical History: Psychiatric and Other (prolapsed uterus, HNP/chronic back pain)
ED Past Surgical History: None
Social History
Tobacco: Non-smoker
Alcohol: Occasional
Drug: None
Personal:
Living: with family
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
Review of Systems
Review of Systems
Allergies reviewed?: Yes
Phy Exam
Physical Exam
Physical Exam:
Vital signs reviewed, patient is awake, alert, appears in no acute distress, head is normocephalic atraumatic, PERRL, EOMI, moving all extremities symmetrically without focal deficit, mild tremulousness noted to right upper extremity without any
weakness in interosseous motor function or computer systems technician strength, no dysdiadochokinesia, no ataxia, no pronator drift, intact sensation to light touch symmetric x 4 extremities, no midline pain on palpation of cervical thoracic or lumbar spine, moderate
paraspinal hypertonicity noted throughout with severe pain reproducing her symptoms on palpation bilateral trapezius, GCS is 15.
Course
Orders/Labs/Results
Orders:
Orders
10/22/24 14:35
0.9% Sodium Chloride 1000 ml [Nss] 1,000 ml IV BOLUS
Cyclobenzaprine HCl [Flexeril] 10 mg PO NOW STA
Famotidine [Pepcid] 20 mg IV NOW STA
Ketorolac [Toradol] 15 mg IM NOW STA
Test Result ONCE
10/22/24 14:57
Ketorolac [Toradol] 15 mg IV NOW STA
10/22/24 15:43
, Urine Qualitative Screen [HCG, Urine Qualitative Screen] Urgent
Date Specimen was Collected: 10/22/24
Time Specimen was Collected: 15:40
Urinalysis Reflex To Culture Urgent
Date Specimen was Collected: 10/22/24
Time Specimen was Collected: 15:40
Urine Microscopic Reflex Cult Urgent
Abnormal Lab Results
10/22/24
15:43
Ur Occult Blood Reflex 1+ A
(Negative)
Vital Signs
Initial and Last Documented VS:
Initial Vital Signs
Temp Pulse Resp BP Pulse Ox
99.2 F 69 16 137/78 100
10/22/24 12:57 10/22/24 12:57 10/22/24 12:57 10/22/24 12:57 10/22/24 12:57
Last Documented Vital Signs
Temp Pulse Resp BP Pulse Ox
99.2 F 69 16 137/78 100
10/22/24 12:57 10/22/24 12:57 10/22/24 12:57 10/22/24 12:57 10/22/24 14:12
MDM/Problems Addressed
Differential Diagnosis Includes:
Differential diagnosis to consider but not limited to muscle spasm, contusion, persistent now subacute pain, dehydration along with other etiologies considered
*Pulse Oximetry
SaO2: 100
Oxygen Mode of Delivery: Room air
Patient hypoxic: no
*Critical Care Note
Total Time (30-74mins, 75-104mins- exclusive of procedures): Not Applicable
Data Reviewed
Review of Other/Old Records Reveals: Records (I reviewed CT head from 10/05/2024 that did not show any acute process. CT cervical spine 10/05/2024 showed Small to moderate-sized central disc herniation at C3/C4 causing mild spinal cord compression and
central canal stenosis.)
Update Note
Update Note:
Patient resting in no acute distress. I did call her primary care physician office and left a voicemail leaving my personal cell phone information so that Dr. Ellsworth could call me back to discuss patient case further as she needs additional
assistance as outpatient to obtain MRI for her neurology appointment. I discussed with patient all medication usage at time of discharge, including use of Pepcid and limited use of NSAIDs given her reported throat discomfort. I also discussed with
her use of Flexeril as a primary medication with limited refill of hydrocodone provided. I discussed with patient benefit of following up with her primary care physician and gave her additional resource information in order to facilitate further
outpatient care. Patient expressed understanding of discharge instructions and has no questions at the current time.
ED Attending Note
-
Portions of this chart may have been created with voice recognition software.� Occasional wrong word or��sound alike� substitutions may have occurred due to the inherent limitations of voice recognition software.
Discharge Plan
Departure
Patient Disposition: Home (Routine Discharge)
Date of Disposition: 10/22/24
Time of Disposition: 16:00
Patient with high blood pressure during this ER visit?: No
Discharge Problem:
Muscle spasm, Neck pain
Prescriptions:
New
cyclobenzaprine 10 mg tablet
10 mg PO TID PRN (Reason: muscle spasm) Qty: 20 0RF
hydrocodone-acetaminophen 5-325 mg tablet
1 tab PO Q8H PRN (Reason: Pain) Qty: 8 0RF
famotidine [Pepcid AC] 20 mg tablet
20 mg PO BID Qty: 14 0RF
No Action
prednisone 10 mg Tablet
See Rx Instructions .ROUTE .COMPLEX Qty: 30 0RF
Rx Instructions:
Take By Mouth:
40 mg daily x3 days, 30 mg daily x3 days,
20 mg daily x3 days, 10 mg daily x3 days.
hydrocodone-acetaminophen 5-325 mg tablet
1 tab PO Q4H PRN (Reason: Pain) Qty: 14 0RF
Referrals:
Vanessa Ellsworth MD [Family Provider, Family Practice]
Interventions
Interventions:
*Risk Screen - Suicide Last Done: 10/22/24 12:57
*General Assessment Last Done: 10/22/24 15:06
*Neglect/Abuse Screening Last Done: 10/22/24 15:06
*ED- Fall Risk Assessment Last Done: 10/22/24 15:06
*ED COVID-19 Vaccine History Last Done: 10/22/24 15:06
ED- Neurological Assessment Last Done: 10/22/24 15:06
Discharge Date and Time
Print Language: LATVIAN
[2024-10-22 15:06] VITALS: BMI 39.8
[2024-10-22] MEDS: FLEXERIL 10 MG PO (15:32)
[2024-10-22] MEDS: TORADOL 15 MG IV (15:32)
[2024-10-22] MEDS: NSS 1000 IV (15:33)
[2024-10-22] MEDS: PEPCID 20 MG IV (15:34)
[2024-10-22 15:55] LABS: Urine Character Clear (Clear)
[2024-10-22 15:58] LABS: HCG, Urine Qualitative Screen Negative
[2024-10-22 16:02] LABS: Urine Red Blood Cell 0-2 /HPF (0-2)
[2024-10-22 16:03] LABS: Urine White Cell 0-2 /HPF (0-5)
[2024-10-22 16:15] VITALS: BP 121/69
== END 2024-10-22 17:20 | disposition home or self-care (01) ==
LOC: EMR 12:48
PROVIDERS: EMERGENCY PHYSICIAN Emergency Medicine; FAMILY PHYSICIAN Family Medicine
DX: M62.838 Other muscle spasm (principal); M54.2 Cervicalgia
CPT/HCPCS: 99282; 96374; 96375; 96361; 81003; 81015; 81025; 87086

== ENCOUNTER 2024-12-07 22:37 | Emergency (ER) | payer OTHER, SELFPAY ==
[2024-12-07 22:41] VITALS: BP 121/95
--- NOTE | 2024-12-08 00:31 | ED.GENMED ---
History of Present Illness
General
Chief Complaint: Suicidal Ideation
Source: patient
Exam Limitations: none
Time Seen by Provider: 12/08/24 00:09
Nursing documentation reviewed up to this point in time: agreed with
History of Present Illness
History of Present Illness:
34-year-old female with past medical history of anxiety, depression, cervical injury presents emergency department today with concerns of passive suicidal ideation due to her persistent pain. Patient reports that 2 months ago, she fell down the
stairs and injured injuries to her neck and wrist. She reports that the neck pain has caused her to have severe headaches. Patient reports that today, the pain became so bad that she had passive suicidal thoughts. Patient reports that she never
had these thoughts before. Patient has no intention to act on these thoughts, patient has no active plan. Patient reports that she would not never act on these thoughts as she has kids to take care of. Patient reports that she follows with
orthopedics and states physical therapy vestibular therapy which have been of minimal improvement to her symptoms. Patient reports that she has not been sleeping the past few days and has been taking care of her children and she feels exhausted and
overwhelmed. Patient reports that she does want to start seeing a therapist. Patient reports that she has a good support system through her ifrah, her [id number], and her children. She reports that she desperately just wants to get at least 30
minutes of sleep without pain. Patient reports that today, the neck pain caused her to have a persistent headache and she has associated photophobia. Patient feels like her headache has never been this bad before. Patient has no associated
nausea, vomiting, photophobia, fevers or chills. Patient has been worked up for this injury at her Emergency Department and by orthopedics. Patient also reports a few days ago, she started numbness and tingling in her left foot but currently does
not have that sensation and is able to ambulate without any difficulty.
Past History
Past History
ED Past Medical History: Psychiatric and Other (prolapsed uterus, HNP/chronic back pain)
ED Past Surgical History: None
Social History
Tobacco: Non-smoker
Alcohol: Occasional
Drug: None
Personal:
Living: with family
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
Review of Systems
Review of Systems
All Other Systems: ROS reviewed and negative except as documented in HPI and ROS
Phy Exam
Physical Exam
Physical Exam:
General: Patient is well appearing and in no acute distress; non-toxic
Skin: Warm and dry, no rashes or lesions
Head: Normocephalic, atraumatic
Neck: No midline spinal tenderness
Eyes: Sclera non-icteric. EOMs intact.
Cardiac: Regular rate and rhythm, no murmurs
Peripheral Vascular: No lower extremity swelling or edema
Pulm: Normal respiratory effort
Musculoskeletal: 5 out of 5 strength in bilateral upper and lower extremities, normal gait
Neuro: CN II-XII intact, no focal neurologic deficits. Normal finger-nose, heel wen testing.
Psychiatric: Appropriate mood and affect.
Course
Orders/Labs/Results
Orders:
Orders
12/07/24 22:49
Crisis Consult Urgent
Reason for Consult: SI
12/07/24 23:43
ED Special Safety Observation ONCE
Observation level: One to Two
12/08/24 00:34
CT Head W/o Iv Contrast Urgent
Comment:
Reason For Exam: worst headache
12/08/24 00:36
Diphenhydramine [Benadryl] 12.5 mg IV NOW STA
Ketorolac [Toradol] 15 mg IV NOW STA
Metoclopramide [Reglan] 10 mg IV NOW STA
12/08/24 00:37
0.9% Sodium Chloride 500 ml [Nss] 500 ml IV BOLUS
12/08/24 00:38
Test Result ONCE
12/08/24 01:04
Complete Blood Count/With Diff Urgent
Comprehensive Metabolic Panel Urgent
HCG, Serum Qualitative Screen Urgent
12/08/24 01:30
Diphenhydramine [Benadryl] 50 mg .ROUTE .STK-MED ONE
Metoclopramide [Reglan] 10 mg .ROUTE .STK-MED ONE
Abnormal Lab Results
12/08/24
01:04
WBC 11.6 H 10^3/uL
(4.8-10.8)
RBC 4.18 L 10^6/uL
(4.20-5.40)
Hgb 11.8 L g/dL
(12.0-16.0)
Hct 35.8 L %
(37.0-47.0)
Plt Count 111 L 10^3/uL
(130-400)
MPV 11.6 H fL
(7.4-10.4)
Absolute Neuts (auto) 8.1 H 10^3/uL
(1.4-6.5)
Absolute Monos (auto) 0.8 H 10^3/uL
(0.1-0.6)
Chloride 111 H mmol/L
(98-107)
Carbon Dioxide 19 L mmol/L
(22-30)
Glucose 103 H mg/dl
(70-99)
12/08/24 01:04
12/08/24 01:04
Vital Signs
Initial and Last Documented VS:
Initial Vital Signs
Temp Pulse Resp BP Pulse Ox
98.2 F 83 18 121/95 95
12/07/24 22:41 12/07/24 22:41 12/07/24 22:41 12/07/24 22:41 12/07/24 22:41
Last Documented Vital Signs
Temp Pulse Resp BP Pulse Ox
98.2 F 64 14 116/62 97
12/07/24 22:41 12/08/24 06:30 12/08/24 06:30 12/08/24 06:30 12/08/24 06:30
MDM/Problems Addressed
Differential Diagnosis Includes:
Differentials include depression, cervical stenosis, cervical strain, Cervicogenic headache, migraine, intracerebral hemorrhage, subarachnoid hemorrhage
MDM/Problems Addressed:
34-year-old female with past medical history of anxiety, depression, cervical injury presents emergency department today with concerns of passive suicidal ideation due to her persistent pain. Patient reports that 2 months ago, she fell down the
stairs and injured injuries to her neck and wrist. She reports that the neck pain has caused her to have severe headaches. Patient reports that today, the pain became so bad that she had passive suicidal thoughts.
She has never had these thoughts before. Patient said they quickly subsided but they scared her. Currently, patient has no active plan and no active suicidal thoughts. Patient states that she would never leave her children. She spoke with crisis
and they created a safety plan together. I spoke to breast worker. I spoke to patient again patient is able to contract for her safety and states that if she were to go home, she feels that she is able to keep herself safe. Patient reports that
she is desperately wants to be free of her current headache and neck pain. She reports that she has once to get some sleep.
I did review prior imaging, patient had prior lumbar spine x-ray which showed no fracture, she also had cervical spine CT which showed small to moderate size central disc herniation causing mild spinal cord compression C3-C4 but no evidence of acute
fracture. She has been seeing Ortho, physical therapy, and vestibular therapy for her symptoms. Suspect patient's current symptoms today are related to cervicogenic headache/migraine. Patient was given a migraine cocktail with complete resolution
of her symptoms. Patient reports that for this persistent neck pain, course of steroids has helped in the past. Patient requesting prescription for this. Will send to patient's pharmacy. Discussed not using this concurrently with NSAIDs.
Patient was understanding. Patient will follow-up with her [facility] orthopedist. Did have long discussion with patient that should she have suicidal thoughts again even passive, she should return to the emergency department immediately. Patient
states that she was given outpatient resources by crisis. Patient stable for discharge.
*Pulse Oximetry
SaO2: 95
Oxygen Mode of Delivery: Room air
Patient hypoxic: no
*Critical Care Note
Total Time (30-74mins, 75-104mins- exclusive of procedures): Not Applicable
Data Reviewed
Review of Other/Old Records Reveals: Records (Reviewed ER physician documentation from 07/17/2023 patient seen for worsening headache, light headedness unremarkable workup today was discharged)
ED Attending Note
-
Portions of this chart may have been created with voice recognition software.� Occasional wrong word or��sound alike� substitutions may have occurred due to the inherent limitations of voice recognition software.
Discharge Plan
Departure
Patient Disposition: Home (Routine Discharge)
Date of Disposition: 12/08/24
Time of Disposition: 04:43
Patient with high blood pressure during this ER visit?: No
Condition: Good
Discharge Problem:
Cervicogenic migraine, Depression
Instructions: Suicide Prevention, Cervical spinal stenosis, Neck pain - ED (DC)
Prescriptions:
New
prednisone 20 mg tablet
40 mg PO DAILY 5 Days Qty: 10 0RF
No Action
prednisone 10 mg Tablet
See Rx Instructions .ROUTE .COMPLEX Qty: 30 0RF
Rx Instructions:
Take By Mouth:
40 mg daily x3 days, 30 mg daily x3 days,
20 mg daily x3 days, 10 mg daily x3 days.
hydrocodone-acetaminophen 5-325 mg tablet
1 tab PO Q4H PRN (Reason: Pain) Qty: 14 0RF
cyclobenzaprine 10 mg tablet
10 mg PO TID PRN (Reason: muscle spasm) Qty: 20 0RF
hydrocodone-acetaminophen 5-325 mg tablet
1 tab PO Q8H PRN (Reason: Pain) Qty: 8 0RF
famotidine [Pepcid AC] 20 mg tablet
20 mg PO BID Qty: 14 0RF
Referrals:
Omid Jiang MD [Active, Orthopedics] - Call in 1-3 days for appt
UNKNOWN - PT NOT,INTERVIEWE [Family Provider]
Activity Restrictions/Additional Instructions:
Prednisone has been sent to your pharmacy. Please take 40 mg once daily for 5 days. Please follow-up with your orthopedist and primary care provider.
As discussed, the ER is always here as a resource for you. Please follow-up with your therapist and SHOULD YOU HAVE SUICIDAL OR HOMICIDAL THOUGHTS, IDEATIONS, FEELINGS OF HOPELESSNESS, FEELING DOWN OR DEPRESSED, INCREASING PAIN, VISUAL LOSS,
WEAKNESS IN ONE-SIDED BODY, DIFFICULTY WALKING, OR ANY OTHER SIGNS OR SYMPTOMS RECENTLY.
Interventions
Interventions:
*Risk Screen - Suicide Last Done: 12/07/24 22:41
*General Assessment Last Done: 12/07/24 22:41
*Neglect/Abuse Screening Last Done: 12/07/24 22:41
*ED- Fall Risk Assessment Last Done: 12/08/24 06:45
*ED COVID-19 Vaccine History Last Done: 12/08/24 06:45
*Nursing Disposition Last Done: 12/08/24 06:45
ED-Psychological Assessment Last Done: 12/07/24 23:10
Discharge Date and Time
Discharge Date/Time: 12/08/24 06:45
Print Language: [id number]
[2024-12-08 00:38] VITALS: BP 121/68
[2024-12-08] MEDS: NSS 500 IV (01:26)
[2024-12-08] MEDS: TORADOL 15 MG IV (01:27)
[2024-12-08 01:30] LABS: HCG, Serum Qualitative Screen Negative
[2024-12-08] MEDS: REGLAN 10 MG IV (01:33)
[2024-12-08] MEDS: BENADRYL 12.5 MG IV (01:33)
[2024-12-08 01:50] LABS: ALT (SGPT) 11 U/L (0-35); AST (SGOT) 17 U/L (14-36); Albumin 3.9 g/dl (3.5-5.0); Alkaline Phosphatase 69 U/L (38-126); Blood Urea Nitrogen 10 mg/dl (7-17); Calcium 9.2 mg/dl (8.4-10.2); Carbon Dioxide 19 mmol/L (22-30); Chloride 111 mmol/L (98-107); Glucose 103 mg/dl (70-99); Potassium 4.3 mmol/L (3.5-5.1); Sodium 138 mmol/L (135-145); Total Protein 6.7 g/dl (6.3-8.2); eGFR > 60.00
[2024-12-08 01:54] LABS: Hematocrit 35.8 % (37.0-47.0); Hemoglobin 11.8 g/dL (12.0-16.0); Mean Corp Hgb Conc. 33.0 g/dL (33.0-37.0); Mean Corpuscular Volume 85.6 fL (81.0-99.0); Nucleated Red Blood Cells % 0 %; Platelet Count 111 10^3/uL (130-400); Red Cell Dist. Width 14.3 % (11.5-14.5)
[2024-12-08 06:00] VITALS: BP 116/62
[2024-12-08 06:30] VITALS: BP 116/62
== END 2024-12-08 06:45 | disposition home or self-care (01) ==
LOC: EMR 22:37
PROVIDERS: Physician Assistant; EMERGENCY PHYSICIAN Emergency Medicine
DX: G44.86 Cervicogenic headache (principal); F32.A Depression, unspecified; R45.851 Suicidal ideations; M50.01 Cervical disc disorder with myelopathy, high cervical region; F41.9 Anxiety disorder, unspecified
CPT/HCPCS: 99284; 96374; 96375 ×2; 96361; 70450; 80053; 84703; 85025